=== PATIENT | female | born 2000 | race Caucasian/White ===

== ENCOUNTER → 2019-05-22 | Outpatient (CLI) | payer BC ==
[~2019-05-22] MED LIST: CEFU500T PO; METF-397; SULF-222
== END ==
LOC: CARD 08:46
PROVIDERS: ATTEND Nurse Practitioner Family
DX: R01.1 Cardiac murmur, unspecified (principal)
CPT/HCPCS: 93306

== ENCOUNTER 2019-11-27 13:06 | Outpatient (CLI) | payer BC | END 2019-11-27 13:24 | disposition home or self-care (01) | LOC: SLEEP 13:06 | PROVIDERS: ATTEND Otolaryngology Otolaryngology/Facial Plastic Surgery | DX: G47.33 Obstructive sleep apnea (adult) (pediatric) (principal); G47.10 Hypersomnia, unspecified; I10 Essential (primary) hypertension; R01.1 Cardiac murmur, unspecified ==

== ENCOUNTER → 2020-06-10 | Outpatient (CLI) | payer BC ==
--- NOTE | 2020-06-10 12:37 | Diagnostic Imaging Report ---
EXAMINATION: CT head without contrast. TECHNIQUE: Multiple contiguous axial images were obtained through the brain without the use of intravenous contrast. All CT scans use one or more of the following dose optimizing techniques: automated exposure control, MA and/or KvP adjustment based on a patient size and exam type, or iterative reconstruction. HISTORY: Hypertension. Syncopal episode 3 weeks ago. Headache. Blurry vision. COMPARISON: None available. FINDINGS: No large acute territorial ischemia, mass, or hemorrhage. No midline shift or mass effect. The ventricles, cortical sulci, and basilar cisterns are patent and unremarkable. The orbits are normal. Paranasal sinuses are normal. Mastoid air cells are clear. No soft tissue abnormality is seen. No osseus lesions or fractures are seen. IMPRESSION: 1. No large acute territorial ischemia, mass, or hemorrhage. Dictated by: Dictated on workstation # [id number]
== END ==
LOC: RAD 11:14
PROVIDERS: ATTEND Internal Medicine Cardiovascular Disease
DX: R55 Syncope and collapse (principal); R07.9 Chest pain, unspecified
CPT/HCPCS: 70450; 93225; 93226; 93306; 93351

== ENCOUNTER 2020-06-19 12:00 | Day surgery (SDC) | payer BC ==
[~2020-06-19] VITALS: Ht 162 cm; Wt 88.0 kg
[2020-06-19 10:53] VITALS: BP 153/85
[~2020-06-19 12:00] MED LIST changes: +LIDOCAINE 1% INJ 20 ML 20 ML VIAL INJ ONE; +LIDOCAINE 1% INJ 20 ML 20 ML VIAL ONE
--- NOTE | 2020-06-19 15:12 | OPERATIVE REPORT ---
DATE OF SERVICE: 06/19/2020 PROCEDURE: Implantable loop recorder implantation. PREOPERATIVE DIAGNOSIS: Syncope. INDICATIONS: The patient is a 19-year-old lady, who has been experiencing intermittent syncope. These symptoms have been infrequent. Holter monitor has not shown any significant arrhythmia. Due to continuing symptoms and relative infrequency of symptoms, implantable loop recorder implantation was carried out today after having obtained an informed consent. DESCRIPTION OF PROCEDURE: [facility] The left prepectoral area was prepared and draped in the usual sterile fashion. Lidocaine 1% was used for local anesthesia. The tools provided with the Mobile Captain Reveal LINQ device were used to make a pocket anterior to the fourth intercostal space into which the device was placed and the wound edges were closed using Dermabond and Steri-Strips. She tolerated the procedure well. The serial number of the device is [id number]. Job ID: [id number] DocumentID: [id number] Dictated Date: 06/19/2020 12:11:30 Contract Management Specialist Date: 06/19/2020 15:11:54 Dictated By: RENETTA HUDSON MD, MA, FACP, FACC, MTDD
== END 2020-06-19 12:54 | disposition home or self-care (01) ==
LOC: CATH 12:00
PROVIDERS: ATTEND Internal Medicine Cardiovascular Disease
DX: R55 Syncope and collapse (principal); R01.1 Cardiac murmur, unspecified; E88.81 Metabolic syndrome and other insulin resistance; E66.9 Obesity, unspecified; I10 Essential (primary) hypertension; E78.2 Mixed hyperlipidemia; I51.7 Cardiomegaly; Z79.899 Other long term (current) drug therapy; Z68.33 Body mass index [BMI] 33.0-33.9, adult; Z82.49 Family history of ischemic heart disease and other diseases of the circulatory system; Z83.3 Family history of diabetes mellitus
CPT/HCPCS: 33285

== ENCOUNTER 2021-02-26 11:32 | Emergency (ER) | payer BC ==
[~2021-02-26] VITALS: Ht 162.5 cm; Wt 81.6 kg
[~2021-02-26 11:32] MED LIST changes: -LIDOCAINE 1% INJ 20 ML 20 ML VIAL INJ ONE; -LIDOCAINE 1% INJ 20 ML 20 ML VIAL ONE
[2021-02-26] MEDS ORDERED: LOSARTAN 50 MG (COZAAR) TAB PO ONE (12:15)
--- NOTE | 2021-02-26 12:18 | ED Cardiac General ---
History of Present Illness General Chief Complaint: Cardiac/General Problems Stated Complaint: HIGH BP Nursing Triage Note: PT AMB TO [facility] 8 WITH COMPLAINT OF HTN. STATES SHE HAS HAD A HEADACHE AND NAUSEA THIS WEEK. STATES SHE HAD A PACEMAKER PLACED 2 MONTHS AGO AT AND WAS ON 3 BP MEDS PRIOR TO PACEMAKER Source: patient Exam Limitations: no limitations History of Present Illness Date Seen by Provider: Feb 26, 2021 Time Seen by Provider: 11:30 Initial Comments 20-year-old female with past medical history of hypertension, hyperlipidemia, and symptomatic bradycardia now status post pacemaker placed by med within the past month and a half coming in due to elevated blood pressure. She is to be on 3 different medications for blood pressure, but they took her off calcium channel blockers and beta-blockers due to her bradycardia. She is currently only on losartan. Since then, she has been more hypertensive. Blood pressures around 200 systolic. She had a mild headache yesterday and that is why she took her blood pressure and noticed it was elevated. Went to [facility] earlier today, they did an EKG, and then referred her here. Denies any chest pain, shortness of breath, abdominal pain, nausea, vomiting, diarrhea, fever, chills, weakness, numbness, vision changes, or any other concerns. Did take her medications this morning already. Her losartan is 50 mg and only takes it in the morning. Allergies and Home Medications Allergies Coded Allergies: No Known Drug Allergies (Unverified , 07/10/09) Patient Home Medication List Home Medication List Reviewed: Yes Cefuroxime Axetil (Ceftin) 500 Mg Tablet, 500 MG PO BID Prescribed by: CHA GONZALES on 12/12/15 1134 Metformin HCl (Metformin HCl) 500 Mg Tablet, (Reported) Entered as Reported by: MAME PORRAS on 12/12/15 1014 Sulfamethoxazole/Trimethoprim (Sulfamethoxazole-Tmp Ds Tablet) 1 Each Tablet, (Reported) Entered as Reported by: MAME PORRAS on 12/12/15 1012 Review of Systems Review of Systems Constitutional: No chills EENTM: No Blurred Vision Respiratory: Denies Cough Cardiovascular: No Symptoms Reported Gastrointestinal: No Symptoms Reported Genitourinary: No Symptoms Reported Musculoskeletal: no symptoms reported Skin: no symptoms reported Psychiatric/Neurological: No Symptoms Reported Endocrine: No Symptoms Reported Hematologic/Lymphatic: No Symptoms Reported All Other Systems Reviewed Negative Unless Noted: Yes Past Hddlehl-Junout-Rruzrh Hx Patient Social History Tobacco Use?: No Use of E-Cig and/or Vaping dev: No Substance use?: No Alcohol Use?: No Pt feels they are or have been: No Immunizations Up To Date Influenza Vaccine Up-to-Date: Yes; Up-to-Date First/Initial COVID19 Vaccinat: MAY 2020 Second COVID19 Vaccination Herman: MAY 2020 COVID19 Vaccine Hatch Tender: MODERNA Seasonal Allergies Seasonal Allergies: No Past Medical History Surgeries: Yes Pacemaker Cardiac: No Neurological: No Reproductive Disorders: No Cancer: No Physical Exam Vital Signs Vital Signs - First Documented 02/26/21 11:41 Temp 35.2 Pulse 74 Resp 16 B/P (MAP) 188/125 (146) Pulse Ox 100 O2 Delivery Room Air Capillary Refill : Less Than 3 Seconds Height, Weight, BMI Height: 5'4" Weight: 200lbs. oz. [id number]; 30.00 BMI Method:Stated General Appearance: No Apparent Distress, WD/WN HEENT: PERRL/EOMI, Normal ENT Inspection, Pharynx Normal Neck: Full Range of Motion, Normal Inspection, Non Tender, Supple Respiratory: Chest Non Tender, Lungs Clear, Normal Breath Sounds, No Accessory Muscle Use, No Respiratory Distress Cardiovascular: Regular Rate, Rhythm, No Edema, Normal Peripheral Pulses Gastrointestinal: Normal Bowel Sounds, Non Tender, Soft; No Distended, No Guarding Extremity: Normal Capillary Refill, Normal Inspection, Normal Range of Motion, Non Tender, No Calf Tenderness, No Pedal Edema Neurologic/Psychiatric: Alert, Oriented x3, No Motor/Sensory Deficits, Normal 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 ABCs were intact and vitals are stable on presentation although she is hypertensive roughly 200/100. She has no red flags including no chest pain, neuro symptoms, shortness of breath, or any other concerns. I gave her a second dose of her losartan. I counseled her to take the 50 mg once in the morning once at night now until she is able to follow-up with her technical service specialist to discuss increasing or adding medications. Give her Tylenol for her headache. I reviewed and interpreted the EKG which she brought with her which was an atrially paced rhythm with a rate in the 60s. No significant ST changes or T wave abnormalities. I believe the patient is stable for discharge. She was sent home with strict return precautions Departure Impression Primary Impression: Hypertension Qualified Codes: I10 - Essential (primary) hypertension Additional Impression: Headache Qualified Codes: R51.9 - Headache, unspecified Disposition: 01 HOME, SELF-CARE Condition: Stable Departure-Patient Inst. Decision time for Depature: 12:20 Referrals: RONALD SILVERIO MD (PCP/Family) Primary Care Physician Patient Instructions: High Blood Pressure ED Add. Discharge Instructions: You were seen in the emergency department for your elevated blood pressure. Fortunately, your exam is good with normal heart and lung sounds. Your neuro exam is normal as well. I recommend following up with your technical service specialist to discuss medication adjustment. I do recommend in the meantime to begin taking your losartan 50 mg at nighttime as well. Take your blood pressure a couple times a day especially after increasing this to ensure that you are not having blood pressures that are too low. If you are having any severe chest pain, severe shortness of breath, weakness or numbness on one side of your body, worst headache of your life, or any other concerns then I recommend you immediately come back to the ER. Work/School Note: Work Release Form Date Seen in the Emergency Department: Feb 26, 2021 Return to Work: Feb 27, 2021 Restrictions: No Restrictions AFSHAN LEE MD Feb 26, 2021 12:18
[2021-02-26] MEDS ORDERED: ACETAMINOPHEN 500 MG TAB (TYLENOL) PO ONE (12:30)
[2021-02-26 12:40] VITALS: BP 183/99
== END 2021-02-26 12:37 | disposition home or self-care (01) ==
LOC: EDUNIT# 11:32 → ER 11:33
DX: I10 Essential (primary) hypertension (principal); R51.9 Headache, unspecified
CPT/HCPCS: 99283